=== PATIENT | female | born 1995 | race Caucasian/White ===

== ENCOUNTER 2018-01-03 08:56 | Emergency (ER) | payer SELFPAY ==
[2018-01-03 09:05] VITALS: BP 124/72; PULSE 75; RESP 18; TEMP 36.6; O2SAT 100; BMI 24.7
--- NOTE | 2018-01-03 09:16 | CT_ITS ---
CT head/brain wo con HISTORY: Headache with dizziness following injury, head injury to back of head with contusion ITS.REASON: FALL ORDERING PHYSICIAN: Ernesto Burk MD PATIENT AGE: 22 years COMPARISON: None TECHNIQUE: Axial images obtained without contrast. Brain and bone windows reviewed. FINDINGS: No midline shift, mass effect, intracranial hemorrhage, hydrocephalus, or extra-axial fluid collection is evident. The calvarium has an unremarkable appearance. No mastoid effusion. No sinus air-fluid levels.. IMPRESSION: Negative CT head without contrast. No acute finding.
--- NOTE | 2018-01-03 09:16 | CT_ITS ---
CT cervical spine wo con CLINICAL INDICATION: Neck pain following injury with dizziness ITS.REASON: FALL ORDERING PHYSICIAN: Ernesto Burk MD PATIENT AGE: 22 years TECHNIQUE: Axial images are obtained without contrast. Sagittal and coronal reformatted images also generated and reviewed. COMPARISON: None FINDINGS: Normal alignment. The disc spaces are well-preserved. No prevertebral soft tissue swelling. Lung apices are clear. Scattered small nodes are present in the neck. IMPRESSION: Negative CT cervical spine, no acute fracture
[2018-01-03 09:36] LABS: Urine Pregnancy, HCG Qual. Negative (Negative)
--- NOTE | 2018-01-03 09:50 | CT_ITS ---
CT thoracic spine wo con CLINICAL INDICATION: Back pain following injury ITS.REASON: FELL HIT BACK OF HEAD ORDERING PHYSICIAN: Ernesto Burk MD PATIENT AGE: 22 years TECHNIQUE: Axial images are obtained without contrast. Sagittal and coronal reformatted images also generated and reviewed COMPARISON: None FINDINGS: Minimal thoracic curvature convex right. Normal alignment. No fracture or dislocation. No lytic or blastic change. No paraspinal hematoma. Small Schmorl's node is present along the superior endplate of T6. Visualized lung krishna are clear. IMPRESSION: No acute finding. Minimal thoracic curvature convex right
--- NOTE | 2018-01-03 10:21 | [facility].EDFALL ---
ED Disposition Clinical Impression: Head contusion Qualifiers: Encounter type: initial encounter Contusion of head detail: scalp Qualified Code(s): S00.03XA - Contusion of scalp, initial encounter Cervical strain Qualifiers: Encounter type: initial encounter Qualified Code(s): S16.1XXA - Strain of muscle, fascia and tendon at neck level, initial encounter Thoracic myofascial strain Qualifiers: Encounter type: initial encounter Qualified Code(s): S29.019A - Strain of muscle and tendon of unspecified wall of thorax, initial encounter Coccyx contusion Qualifiers: Encounter type: initial encounter Qualified Code(s): S30.0XXA - Contusion of lower back and pelvis, initial encounter Disposition: Home, Self-Care Condition on Discharge: Good Instructions: How to Prevent Falls Additional Instructions: Please follow-up with PCP within 2 days of any additional complaints. May alternate Motrin with Tylenol for pain control. Referrals: Cruz Sagastume [Primary Care Provider] - Time of Disposition: 10:30 - Critical Care Critical Care Time: No Attestation: On 01/03/18, the high probability of a clinically significant, sudden or life threatening deterioration of the following system(s) required my full and direct attention, intervention and personal management. The time I documented below is in addition to time spent performing reported procedures but includes the following listed in this critical care notation. Medical Decision Making - Medical Records Medical records reviewed: Yes: I reviewed the patient's medical records. Vital Signs: 01/03/18 09:05 01/03/18 10:49 Temperature 97.8 F 98.1 F Temperature Source Temporal Artery Scan Temporal Artery Scan Pulse Rate 82 Pulse Rate [Right Brachial] 75 Respiratory Rate 18 18 Blood Pressure 140/75 Blood Pressure [Right Arm] 124/72 Blood Pressure Mean [Right Arm] 89 Blood Pressure Source Automatic Cuff Blood Pressure Source [Right Arm] Automatic Cuff Blood Pressure Position Sitting Blood Pressure Position [Right Arm] Standing 02 Sat by Pulse Oximetry 100 Oxygen Delivery Method Room Air Room Air Oxygen Flow Rate (LPM) 98 - Lab Data Lab Results 01/03/18 09:16: Urine HCG, Qual Negative - Radiology Data #1 Image(s): T-Spine, Other (pelvis/coccyx) Image Reviewed: Yes I reviewed the patient's radiology results, Yes I reviewed the patient's radiology image, Yes I have reviewed radiologist's interpretation Preliminary Findings: Normal/NAD - CT Data CT Scan: Head, C-Spine Time Received: 10:[address] Reviewed: Yes: I have reviewed the patient's CT results, I have viewed the radiologist's interpretation Preliminary Findings: Normal/NAD - [facility] Inquiry Pt receiving controlled substance: No - Reevaluation(s) Time: 10:10 Reevaluation #1: On reevaluation patient appears in no acute distress, advised of results obtained, instructed her to follow-up with PCP if any further medical needs. Fall HPI - General Chief Complaint: Fall Stated Complaint: AO 01/03/18 Fell hurt head, dizzy and tail bone Mode of Arrival: Ambulatory Limitations: No Limitations Description of Symptoms (Recalled from ER Triage Doc. by RN): fell going into work at the [employer] - History of Present Illness HPI Narrative: Patient is a 22-year-old lady that fell while going into work this morning, injuring her low back, thoracic spine, neck and head. Patient was briefly dazed, unsure if she has passed out or not. Appears in no acute distress upon arrival to the emergency room. complaint: fall Onset (ago): minute(s) (30) Fall from: standing, walking Fall witnessed: yes, by family Place fall occurred: work Loss of consciousness: unsure Symptoms prior to fall: none Context: tripped/slipped - Related Data Home Medications Medication Instructions Recorded Confirmed No Known Home Medications [No 01/03/18 01/03/18 Known Home Medications] Allergies Allergy/
[2018-01-03 10:49] VITALS: BP 140/75; PULSE 82; RESP 18; TEMP 36.7; O2SAT 98
== END 2018-01-03 10:49 | disposition home or self-care (01) ==
PROVIDERS: Emergency Provider Emergency Medicine; PCP Family Medicine
DX: S00.03XA Contusion of scalp, initial encounter (principal); S16.1XXA Strain of muscle, fascia and tendon at neck level, initial encounter; S29.019A Strain of muscle and tendon of unspecified wall of thorax, initial encounter; S30.0XXA Contusion of lower back and pelvis, initial encounter; W18.30XA Fall on same level, unspecified, initial encounter
CPT/HCPCS: 70450; 72125; 72128; 81025; 99281